=== PATIENT | female | born 1955 ===

== ENCOUNTER 2019-06-21 11:08 | Outpatient (REF) | payer SELFPAY ==
[2019-06-21 22:44] LABS: BUN 14 mg/dL (7-18); CREATININE 1.03 mg/dL (0.55-1.02); Estimated GFR 54.48 (mL/min/1.73m2)
== END 2019-06-21 11:28 ==
LOC: NCHCN 11:08
PROVIDERS: PCP Nurse Practitioner Family; Visit Provider Nurse Practitioner Family
DX: R31.0 Gross hematuria (principal)
CPT/HCPCS: 84520; 87077; 82565; 87086; 87186